=== PATIENT | male | born 1950 | race Caucasian/White ===

== ENCOUNTER 2021-03-07 11:22 | Emergency (ER) | payer MEDICARE ==
[~2021-03-07] VITALS: Ht 175.3 cm; Wt 82.3 kg
[2021-03-07 13:03] LABS: BASO % 0.4 % (0.0-1.0); EOS # 0.1 10^3/uL (0.0-0.5); EOS % 1.2 % (0.0-3.0); HEMATOCRIT 44.9 % (42.0-52.0); HEMOGLOBIN 15.1 g/dl (13.5-17.5); LYMPH # 1.6 10^3/uL (1.5-5.0); LYMPH % 15.9 % (24.0-44.0); MEAN CORPUSCULAR HEMOGLOBIN 31.1 pg (27.0-33.0); MEAN CORPUSCULAR HGB CONC 33.6 g/dl (32.0-36.5); MEAN CORPUSCULAR VOLUME 92.6 fl (80.0-96.0); MONO # 1.1 10^3/uL (0.0-0.8); MONO % 11.1 % (2.0-8.0); NEUTROPHILS # 7.2 10^3/uL (1.5-8.5); PLATELET COUNT, AUTOMATED 183 10^3/uL (150-450); RED BLOOD COUNT 4.85 10^6/uL (4.30-6.10); WHITE BLOOD COUNT 10.2 10^3/uL (4.0-10.0)
[2021-03-07 13:24] LABS: ALBUMIN 3.7 GM/DL (3.2-5.2); ALT/SGPT 59 U/L (12-78); BILIRUBIN,DIRECT 0.2 MG/DL (0.0-0.2); BILIRUBIN,TOTAL 0.5 MG/DL (0.2-1.0); BLOOD UREA NITROGEN 19 MG/DL (7-18); CALCIUM LEVEL 8.8 MG/DL (8.8-10.2); CARBON DIOXIDE LEVEL 27 MEQ/L (21-32); CHLORIDE LEVEL 105 MEQ/L (98-107); CK-MB VALUE MASS < 1.0 NG/ML (<3.6); CPK CREATINE PHOSPHOKINASE 67 U/L (39-308); CREATININE FOR GFR 1.35 MG/DL (0.70-1.30); GLOMERULAR FILTRATION RATE 55.6 (>42); GLUCOSE, FASTING 130 MG/DL (70-100); MB/CK RELATIVE INDEX 1.49 (< OR =4); POTASSIUM SERUM 4.3 MEQ/L (3.5-5.1); SODIUM LEVEL 137 MEQ/L (136-145); TOTAL PROTEIN 7.2 GM/DL (6.4-8.2); TROPONIN I < 0.02 NG/ML (< 0.10)
--- NOTE | 2021-03-07 13:46 | REP ---
INDICATION: CHEST PAIN. COMPARISON: None. TECHNIQUE: AP view FINDINGS: Areas of atelectasis at the lung bases. Minimal right pleural effusion. No evidence of active parenchymal disease. The heart is not enlarged. There is no failure. IMPRESSION: Atelectasis at the lung bases. Minimal right pleural effusion. <Electronically signed by Omar Aburto > 03/07/21 [id number]
[2021-03-07] MEDS ORDERED: ISOVUE-370 76% 100ML VIAL As Ordered ONE (14:12)
--- NOTE | 2021-03-07 14:37 | REP ---
INDICATION: rule out PE COMPARISON: None. TECHNIQUE: CT angiography of the chest attention pulmonary arteries after the intravenous administration of 100 cc Isovue 370. FINDINGS: There is excellent visualization of the pulmonary arterial vasculature. There is a filling defects seen in a proximal right upper lobe pulmonary artery and an additional filling defect seen in 1 of the right lower lobe pulmonary arteries. There is a small right pleural effusion. There is no pericardial effusion. There is no mediastinal or hilar adenopathy. The imaged upper abdomen and imaged osseous structures are within normal limits. Evaluation of the lung villa shows bilateral lower lobe asymmetric and band like densities in conjunction with a patchy density in the right lower lobe abutting the aforementioned pleural effusion. IMPRESSION: 1. There is evidence of right lung pulmonary emboli as described above. 2. Bilateral lower lung field opacities consistent with a combination of subsegmental atelectasis and possible early pneumonia in the right lower lobe. 3. There is a small right pleural effusion. <Electronically signed by John Yang > 03/07/21 1977
[2021-03-07] MEDS ORDERED: ELIQ5TAB PO (15:40)
[2021-03-07 16:32] VITALS: BP 131/78
--- NOTE | 2021-03-08 08:41 | ECGEPIP ---
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
== END 2021-03-07 16:34 | disposition home or self-care (01) ==
LOC: M ED 11:22
DX: I26.99 Other pulmonary embolism without acute cor pulmonale (principal); I10 Essential (primary) hypertension; J98.11 Atelectasis; J90 Pleural effusion, not elsewhere classified; Z79.01 Long term (current) use of anticoagulants
CPT/HCPCS: 36415; 71045; 71275; 80048; 80076; 82550; 82553; 83880; 84484; 85025; 93005; 93041; 99285; Q9967